=== PATIENT | female | born 1970 ===

== ENCOUNTER 2025-03-30 10:00 | Day surgery (SDC) | payer OTHER ==
[2025-03-23 08:04] LABS: BASO % 0.7 % (0.1-1.2); EOS # 0.09 (0.04-0.54); EOS % 1.2 % (0.7-7.0); LYMPH # 2.38 (1.18-3.74); LYMPH % 33.0 % (19.3-53.1); MEAN PLATELET VOLUME 10.10 fl (9.4-12.4); MONO # 0.40 (0.24-0.82); MONO % 5.5 % (4.7-12.5); NEUT # 4.27 (1.56-6.13); NEUT % 59.3 % (34.0-71.1); RED CELL DISTRIBUTION WIDTH 11.5 % (11.6-14.4)
[2025-03-23 08:16] LABS: URINE APPEARANCE Clear; URINE BILIRRUBIN Negative (NEGATIVE); URINE BLOOD Negative; URINE COLOR Yellow; URINE GLUCOSE Negative (NEGATIVE); URINE KETONE Negative (NEGATIVE); URINE LEUKOCYTE Negative; URINE NITRATE Negative; URINE PROTEIN Negative (NEGATIVE); URINE UROBILINOGEN 0.2 E.U./dl
[2025-03-23 08:18] LABS: URINE BACTERIA 88.7 uL (0.0-1933); URINE EPITHELIAL CELLS 2.3 uL (0.0-38.8); URINE RBC 5.5 uL (0.0-20.8); URINE WBC 2.1 uL (0.0-23.2)
[2025-03-23 08:27] LABS: URINE CAST 0.14 uL (0.0-1.40)
[2025-03-23 08:32] LABS: ALT/SGPT 22.0 U/L (12-78); AST/SGOT 16.0 U/L (15-37); BILIRUBIN TOTAL 0.62 mg/dL (0.3-1.2); BUN CREA RATIO 31.0 (7.0-25.0); CREATININE SERUM 0.81 mg/dL (0.55-1.02); GFR 73.14; GLOBULINA 3.5 G/DL (2.4-3.5); GLUCOSE FASTING 119.0 mg/dL (65-100); OSMOLALITY SERUM 289.0 MOSM/KG (275-295)
[2025-03-23 08:35] VITALS: BP 150/79
[2025-03-23 08:38] LABS: INR 0.94
[~2025-03-30] VITALS: Ht 172.7 cm; Wt 113.4 kg
[~2025-03-30 10:00] MED LIST: AMITRIPTYLINE100 MG PO; LAMOTRIGINE200 MG PO; LIPITOR40 MG PO; MIRTAZAPINE45 M1 PO; PAXIL30 MG PO; SYNTHROID150 MCG PO; WELLBUTRIN XL300 MG PO
[2025-03-30] MEDS ORDERED: KETOROLAC TROMETHAMINE 30 MG VIAL IM ONE (12:45)
[2025-03-30] MEDS ORDERED: POVIDONE-IODINE 118 ML BOTT TOP ONE (12:45)
[2025-03-30] MEDS ORDERED: KETOROLAC TROMETHAMINE 30 MG VIAL IV ONE (12:45)
[2025-03-30] MEDS ORDERED: CEFAZOLIN SODIUM 1,000 MG VIAL IV ONE (12:45)
== END 2025-03-30 15:45 | disposition home or self-care (01) ==
LOC: CIR.AMB 10:00
PROVIDERS: ATTEND Orthopaedic Surgery
DX: M77.02 Medial epicondylitis, left elbow (principal); G56.22 Lesion of ulnar nerve, left upper limb